=== PATIENT | female | born 1960 | race Caucasian/White ===

== ENCOUNTER 2025-02-20 15:49 | Emergency (ER) | payer BC, SELFPAY ==
[2025-02-20 16:01] VITALS: BP 172/97; BMI 20.8
[2025-02-20 16:31] LABS: Hematocrit 42.8 % (37.0-47.0); Hemoglobin 13.4 g/dL (12.0-16.0); Mean Corp Hgb Conc. 31.3 g/dL (33.0-37.0); Mean Corpuscular Volume 93.9 fL (81.0-99.0); Nucleated Red Blood Cells % 0 %; Platelet Count 378 10^3/uL (130-400); Red Cell Dist. Width 15.5 % (11.5-14.5)
--- NOTE | 2025-02-20 16:41 | ED.GENMED ---
History of Present Illness
General
Chief Complaint: Abdominal Symptoms
Time Seen by Provider: 02/20/25 16:02
History of Present Illness
History of Present Illness:
65-year-old female with history of MS and rheumatoid arthritis presents to the emergency department for evaluation of intermittent nausea vomiting and diarrhea ongoing for the past 5 days with rapid worsening of symptoms today associated with
generalized weakness and diffuse shivering. She notes that she ate out at a restaurant last week prior to onset of symptoms but also ate pizza last night before symptoms can worsen. She does also note nasal congestion and coughing for the past 3
to 4 days, her had similar symptoms, they feel that this is improving. No chest pain, shortness of breath, or abdominal pain. She is not currently on any disease modifying medications for MS or for RA. No hematemesis or hematochezia
Past History
Past History
ED Past Medical History: Other (Patient has a history of rheumatoid arthritis, and MS which has been in remission )
Social History
Personal:
Living: with family
Review of Systems
Review of Systems
Allergies reviewed?: Yes
All Other Systems: ROS reviewed and negative except as documented in HPI and ROS
Phy Exam
Physical Exam
Physical Exam:
GEN: Well appearing, NAD, WDWN
HEENT: Oral mucosa moist, no scleral icterus
Cardiac: Regular rate and rhythm, no murmurs
Lung: No respiratory distress, no tachypnea
Abdomen: Soft, grossly nontender
MSK: No gross deformity or injuries
Skin: Good color, no pallor or jaundice, no rashes
Neuro: AO x3, moves all extremities freely, general tremor noted
Psych: Calm, cooperative
Course
Orders/Labs/Results
Orders:
Orders
02/20/25 16:18
Complete Blood Count/With Diff Urgent
Comprehensive Metabolic Panel Urgent
02/20/25 17:07
COVID-19 Antigen Urgent
Source: Nasal Swab
Lactic Acid Q4H
Comment: CANCEL 2nd LACTIC ACID IF 1st LACTIC ACID IS LESS THAN 2
Blood Culture Q30M
GM Source: Blood/Venous
Specimen Description:
Blood Culture Q30M
GM Source: Blood/Venous
Specimen Description:
Influenza A+B Rapid Molecular Urgent
GM Source: Nasal Swab
Specimen Description:
02/20/25 18:35
0.9% Sodium Chloride 500 ml [Nss] 500 ml IV BOLUS
CR Chest - 2 Views Urgent
Comment:
Reason For Exam: leukocytosis
02/20/25 18:55
Urinalysis Reflex To Culture Urgent
Date Specimen was Collected: 02/20/25
Time Specimen was Collected: 18:46
Urine Microscopic Reflex Cult Urgent
Urine Culture Urgent
GM Source: U
Specimen Description:
Date Specimen was Collected: 02/20/25
Time Specimen was Collected: 18:46
Abnormal Lab Results
02/20/25 02/20/25
16:18 18:55
WBC 17.2 H 10^3/uL
(4.8-10.8)
MCHC 31.3 L g/dL
(33.0-37.0)
RDW 15.5 H %
(11.5-14.5)
Abs Immat Gran (auto) 0.1 H 10^3/uL
(0-0.05)
Absolute Neuts (auto) 14.7 H 10^3/uL
(1.4-6.5)
Absolute Lymphs (auto) 1.1 L 10^3/uL
(1.2-3.4)
Absolute Monos (auto) 1.2 H 10^3/uL
(0.1-0.6)
Neutrophils % 85.5 H %
(42.2-75.2)
Lymphocytes % 6.3 L %
(20.5-51.1)
BUN 22 H mg/dl
(7-17)
Glucose 142 H mg/dl
(70-99)
Total Protein 8.3 H g/dl
(6.3-8.2)
Albumin 5.1 H g/dl
(3.5-5.0)
Urine Ketones 3+ A
(Negative)
Ur Occult Blood Reflex 1+ A
(Negative)
Urine Bacteria (Reflex) Many A
(Negative)
Urine Albumin (Reflex) 2+ A
(Neg - Trace)
02/20/25 16:18
02/20/25 16:18
Vital Signs
Initial and Last Documented VS:
Initial Vital Signs
Temp Pulse Resp BP Pulse Ox
97.0 F 81 16 172/97 100
02/20/25 16:01 02/20/25 16:01 02/20/25 16:01 02/20/25 16:01 02/20/25 16:01
Last Documented Vital Signs
Temp Pulse Resp BP Pulse Ox
97.0 F 86 16 148/93 97
02/20/25 16:01 02/20/25 20:00 02/20/25 20:00 02/20/25 20:00 02/20/25 20:00
MDM/Problems Addressed
MDM/Problems Addressed:
Patient appears clinically well however is noted to have leukocytosis. She does have waxing and waning symptoms of gastroenteritis which may suggest an underlying foodborne pathogen particularly given that she dine out on 2 occasions during this
time. Remainder of her workup is unremarkable for bacterial source of infection. Providers do give concern for bacteremia however again clinically she looks well, afebrile in the ED. Will await blood cultures and outpatient stool cultures for
further determination of source of infection. She was able to ambulate on her own power at time of discharge
*Pulse Oximetry
SaO2: 100
Oxygen Mode of Delivery: Room air
Patient hypoxic: no
*Critical Care Note
Total Time (30-74mins, 75-104mins- exclusive of procedures): Not Applicable
ED Attending Note
-
Portions of this chart may have been created with voice recognition software.� Occasional wrong word or��sound alike� substitutions may have occurred due to the inherent limitations of voice recognition software.
Discharge Plan
Departure
Patient Disposition: Home (Routine Discharge)
Date of Disposition: 02/20/25
Time of Disposition: 19:42
Patient with high blood pressure during this ER visit?: No
Discharge Problem:
Gastroenteritis
Instructions: Diarrhea in teens and adults
Prescriptions:
No Action
levofloxacin 1 DROP drops
1 drp LEFT EYE Q2 Qty: 1 0RF
Rx Instructions:
Use one drop every 2 hours while awake for the first 2 days then every 4-8 hours for 5 days, for a total of 7 days
tramadol 50 MG tablet
50 mg PO Q6HPRN Qty: 10 0RF
Rx Instructions:
When necessary for pain
desog-e.estradiol/e.estradiol [Mircette (28)] 1 TAB tablet
1 tab PO DAILY
Patient Comments:
generic
celecoxib 100 MG capsule
100 mg PO PRN PRN (Reason: RA)
hydroxyzine pamoate [Vistaril] 25 MG capsule
25 mg PO HS
tramadol 50 MG tablet
50 mg PO Q6HPRN PRN (Reason: pain) Qty: 20 0RF
Referrals:
Jadyn Whittaker DO [Family Provider, Family Practice]
Activity Restrictions/Additional Instructions:
Please obtain stool specimens at your earliest convenience
At this time there is no need to urgently start you on antibiotics, however further test results may dictate the need for antibiotics
We will contact you if your blood or stool specimen results are positive
Interventions
Interventions:
*Risk Screen - Suicide Last Done: 02/20/25 16:01
*General Assessment Last Done: 02/20/25 16:01
*Neglect/Abuse Screening Last Done: 02/20/25 16:01
*ED- Fall Risk Assessment Last Done: 02/20/25 16:01
*ED COVID-19 Vaccine History Last Done: 02/20/25 16:01
*ED Influenza Vaccine History Last Done: 02/20/25 16:01
*Nursing Disposition Last Done: 02/20/25 19:48
HT-Utyale-Rljfumopmu Assessment Last Done: 02/20/25 16:39
Discharge Date and Time
Discharge Date/Time: 02/20/25 20:30
Print Language: ESTONIAN
[2025-02-20 16:55] VITALS: BP 143/94
[2025-02-20 16:57] LABS: ALT (SGPT) 18 U/L (0-35); AST (SGOT) 31 U/L (14-36); Albumin 5.1 g/dl (3.5-5.0); Alkaline Phosphatase 86 U/L (38-126); Blood Urea Nitrogen 22 mg/dl (7-17); Calcium 10.0 mg/dl (8.4-10.2); Carbon Dioxide 23 mmol/L (22-30); Chloride 107 mmol/L (98-107); Estimated Creatinine Clearance 54 ml/min; Glucose 142 mg/dl (70-99); Potassium 4.2 mmol/L (3.5-5.1); Sodium 141 mmol/L (135-145); Total Protein 8.3 g/dl (6.3-8.2); eGFR > 60.00
[2025-02-20 18:00] VITALS: BP 145/91
[2025-02-20 18:13] LABS: COVID-19 Antigen Negative (Negative)
[2025-02-20] MEDS: NSS 500 IV (18:54)
[2025-02-20 19:00] VITALS: BP 144/89
[2025-02-20 19:10] LABS: Urine Character Clear (Clear)
[2025-02-20 19:20] LABS: Urine Squamous Cell 0-2 /LPF (Few)
[2025-02-20 19:21] LABS: Urine Red Blood Cell 0-2 /HPF (0-2); Urine White Cell 0-2 /HPF (0-5)
[2025-02-20 20:00] VITALS: BP 148/93
== END 2025-02-20 20:30 | disposition home or self-care (01) ==
LOC: EMR 15:49
PROVIDERS: Physician Assistant; EMERGENCY PHYSICIAN Emergency Medicine; FAMILY PHYSICIAN Family Medicine
DX: K52.9 Noninfective gastroenteritis and colitis, unspecified (principal); G35.D Multiple sclerosis, unspecified; M06.9 Rheumatoid arthritis, unspecified
CPT/HCPCS: 99283; 71046; 80053; 81003; 81015; 83605; 85025; 87040; 87086; 87502; 87811